=== PATIENT | female | born 1975 | race Two or more races ===

== ENCOUNTER 2024-03-20 05:10 | Day surgery (SDC) | payer OTHER ==
[2024-03-11 07:08] LABS: HEMATOCRIT 40.2 % (36.0-45.00); HEMOGLOBIN 13.4 g/dL (12.0-15.00); MEAN CELL VOLUME 89.6 fL (80.00-100.00); MEAN CORPUSCULAR HGB CONC 33.4 g/dl (32.0-36.0); PLATELET COUNT 315 K/uL (150-450); RED BLOOD COUNT 4.48 M/uL (4.00-6.00); RED CELL DISTRIBUTION WIDTH 13.4 % (11.5-14.5)
[2024-03-11 07:24] VITALS: BP 115/74
[2024-03-11 07:24] LABS: PH,URINE 5.5 (5.0-8.0); URINE APPEARANCE Clear; URINE BILIRRUBIN Negative (NEGATIVE); URINE BLOOD Negative; URINE COLOR Yellow; URINE GLUCOSE Negative (NEGATIVE); URINE KETONE Negative (NEGATIVE); URINE LEUKOCYTE Negative; URINE NITRATE Negative; URINE PROTEIN Negative (NEGATIVE); URINE UROBILINOGEN 0.2 E.U./dl
[2024-03-11 07:28] LABS: URINE BACTERIA 967.5 uL (0.0-1933); URINE EPITHELIAL CELLS 81.3 uL (0.0-38.8); URINE RBC 7.9 uL (0.0-20.8); URINE WBC 10.6 uL (0.0-23.2)
[2024-03-11 07:36] LABS: PARTIAL THROMBOPLASTIN TIME 28.3 SECONDS (22.0-34.0); PROTHROMBIN TIME 10.9 SECONDS (9.0-11.5)
[2024-03-11 08:14] LABS: ALBUMIN 3.7 gm/dL (3.4-5.0); BILIRUBIN TOTAL 0.62 mg/dL (0.3-1.2); CALCIUM 11.1 mg/dL (8.5-10.1); CREATININE SERUM 0.72 mg/dL (0.55-1.02); GFR 86.45; GLOBULINA 3.4 G/DL (2.4-3.5); POTASSIUM 4.87 mEq/L (3.5-5.1); TOTAL PROTEIN 7.1 gm/dL (6.4-8.2)
[~2024-03-20] VITALS: Ht 154.9 cm; Wt 66.7 kg
[~2024-03-20 05:10] MED LIST: ASMALPRED; CEFTRIAXONE1 G/VIAL; G-ZYNCOF 20-40473 ML; LIDOCAINE HC
[2024-03-20] MEDS ORDERED: CEFAZOLIN SODIUM 1,000 MG VIAL IV ONE (08:00)
[2024-03-20] MEDS ORDERED: POVIDONE-IODINE 118 ML BOTT TOP ONE (08:00)
[2024-03-20] MEDS ORDERED: TRAM1TAB98 PO (08:10)
[2024-03-20] MEDS ORDERED: DOXYCYCLINE HY100 MG PO (08:10)
[2024-03-20] MEDS ORDERED: ACETAMINOPHEN 500 MG GEL..CAP PO STA (11:32)
== END 2024-03-20 13:05 | disposition home or self-care (01) ==
LOC: CIR.AMB 05:10
PROVIDERS: ATTEND Obstetrics & Gynecology
DX: D25.0 Submucous leiomyoma of uterus (principal); N95.0 Postmenopausal bleeding; N84.0 Polyp of corpus uteri; Z88.6 Allergy status to analgesic agent; Z88.1 Allergy status to other antibiotic agents

== ENCOUNTER 2025-03-12 10:00 | Day surgery (SDC) | payer OTHER ==
[2025-02-25 08:11] VITALS: BP 120/67
[2025-02-25 08:28] LABS: URINE APPEARANCE Turbid; URINE BILIRRUBIN Negative (NEGATIVE); URINE BLOOD Negative; URINE COLOR Yellow; URINE GLUCOSE Negative (NEGATIVE); URINE KETONE Negative (NEGATIVE); URINE LEUKOCYTE Negative; URINE NITRATE Negative; URINE PROTEIN Negative (NEGATIVE); URINE UROBILINOGEN 0.2 E.U./dl
[2025-02-25 08:29] LABS: URINE BACTERIA 124.7 uL (0.0-1933); URINE EPITHELIAL CELLS 8.1 uL (0.0-38.8); URINE RBC 2.0 uL (0.0-20.8); URINE WBC 3.2 uL (0.0-23.2)
[2025-02-25 08:31] LABS: URINE CAST 0.14 uL (0.0-1.40)
[2025-02-25 09:14] LABS: ALT/SGPT 25.0 U/L (12-78); AST/SGOT 17.0 U/L (15-37); BILIRUBIN TOTAL 0.3 mg/dL (0.3-1.2); BUN CREA RATIO 24.0 (7.0-25.0); CREATININE SERUM 0.59 mg/dL (0.55-1.02); GFR 108.33; GLOBULINA 3.5 G/DL (2.4-3.5); GLUCOSE FASTING 87.0 mg/dL (65-100); OSMOLALITY SERUM 281.0 MOSM/KG (275-295)
[2025-02-25 09:15] LABS: BASO % 1.3 % (0.1-1.2); EOS # 0.25 (0.04-0.54); EOS % 3.3 % (0.7-7.0); LYMPH # 2.87 (1.18-3.74); LYMPH % 37.5 % (19.3-53.1); MEAN PLATELET VOLUME 10.70 fl (9.4-12.4); MONO # 0.57 (0.24-0.82); MONO % 7.5 % (4.7-12.5); NEUT # 3.82 (1.56-6.13); NEUT % 49.9 % (34.0-71.1); RED CELL DISTRIBUTION WIDTH 12.6 % (11.6-14.4)
[2025-02-25 09:19] LABS: INR 0.95
[~2025-03-12] VITALS: Ht 154.9 cm; Wt 65.8 kg
[~2025-03-12 10:00] MED LIST changes: +DOXYCYCLINE HY100 MG PO; +TRAM1TAB98 PO; +VITAMIN C; +VITAMIN E; +[UNRECOGNIZED DRUG - OTHER]
[2025-03-12] MEDS ORDERED: DEXAMETHASONE SODIUM PHOSPHATE 4 MG/ML VIAL ONE (12:08)
[2025-03-12] MEDS ORDERED: SUGAMMADEX SODIUM 200 MG/2 ML VIAL IV ONE (12:08)
[2025-03-12] MEDS ORDERED: ACETAMINOPHEN 500 MG GEL..CAP PO ONE (18:06)
== END 2025-03-12 21:00 | disposition home or self-care (01) ==
LOC: O/R 10:00 → SURH 10:00 → CIR.AMB 10:00 → SURH 12:45 → OB/GYN 16:42 → O/R 16:42 → OB/GYN 19:54 → O/R 19:54 → CIR.AMB 21:00
PROVIDERS: ATTEND Surgery
DX: E21.0 Primary hyperparathyroidism (principal)